=== PATIENT | male | born 1980 | race Caucasian/White ===

== ENCOUNTER 2018-12-14 11:39 | Inpatient (IN) | payer MEDICAID ==
[~2018-12-14] VITALS: Ht 177.8 cm; Wt 79.5 kg
[~2018-12-14 11:39] MED LIST: FLUO20CA39 PO; HYDR-3965 PO; IBUP-1984 PO; LANS30TA4 PO
[2018-12-14] MEDS ORDERED: acetaminophen 325mg tablet PO ONE (12:05)
--- NOTE | 2018-12-14 12:17 | NUR ---
relieving RN for break, instructional technology director at bedside
[2018-12-14] MEDS ORDERED: HYDROcodone/acetaminophen 10/325mg tab PO ONE (12:40)
[2018-12-14] MEDS ORDERED: ondansetron 4mg rapidly disintigrating tab PO ONE (12:40)
[2018-12-14] MEDS ORDERED: morphine 4 MG/ML inj SYRINge IV ONE (13:00)
[2018-12-14] MEDS ORDERED: normal saline 1000ML IV soln IVB ONE (13:00)
[2018-12-14] MEDS ORDERED: levoFLOXACIN-Levaquin 500mg/D5 100 ML IV ONE (13:00)
[2018-12-14] MEDS ORDERED: ondansetron/PF 4mg/2ml inj IV ONE (13:00)
[2018-12-14 13:40] LABS: BASOPHILS # (AUTO) 0.1 X10'3 (0-0.2); BASOPHILS % (AUTO) 0.6 % (0-1); EOSINOPHILS # (AUTO) 0.1 X10'3 (0-0.9); EOSINOPHILS % (AUTO) 0.5 % (0-6); HEMATOCRIT 40.6 % (42.0-52.0); HEMOGLOBIN 13.9 g/dl (14.0-17.9); LYMPHOCYTES # (AUTO) 2.1 X10'3 (1.1-4.8); LYMPHOCYTES % (AUTO) 10.3 % (21-51); MEAN CORPUSCULAR HEMOGLOBIN 33.8 PG (27.0-31.0); MEAN CORPUSCULAR HGB CONC 34.2 g/dL (33.0-36.5); MEAN CORPUSCULAR VOLUME 98.8 FL (78-98); MEAN PLATELET VOLUME 7.7 FL (7.4-10.4); MONOCYTES # (AUTO) 1.6 X10'3 (0-0.9); MONOCYTES % (AUTO) 8.1 % (2-12); NEUTROPHILS % (AUTO) 80.5 % (42-75); PLATELET COUNT 444 X10'3 (140-440); RED BLOOD COUNT 4.12 X10'6 (4.70-6.10); WHITE BLOOD COUNT 19.9 X10'3 (4.5-11.0)
[2018-12-14] MEDS ORDERED: NO HOME MEDS (13:51)
[2018-12-14 13:54] LABS: ALANINE AMINOTRANSFERASE 25 U/L (12-78); ALBUMIN 3.2 G/DL (3.4-5.0); ALBUMIN/GLOBULIN RATIO 0.7 (1.1-1.5); ALKALINE PHOSPHATASE 82 IU/L (46-116); ANION GAP 9 (8-16); ASPARTATE AMINO TRANSFERASE 16 U/L (10-37); BILIRUBIN,TOTAL 0.2 MG/DL (0.1-1.0); BLOOD UREA NITROGEN 13 MG/DL (7-18); BUN/CREATININE RATIO 12.5 (5.4-32.0); CALCIUM 9.3 MG/DL (8.5-10.1); CHLORIDE 96 MMOL/L (99-107); CREATININE 1.04 MG/DL (0.60-1.10); GLUCOSE 90 MG/DL (70-104); POTASSIUM 3.7 MMOL/L (3.5-5.1); SODIUM 132 MMOL/L (135-145); TOTAL CARBON DIOXIDE 27.2 MMOL/L (24-32); TOTAL PROTEIN 7.8 G/DL (6.4-8.2); eGFR 81 ML/MIN
[2018-12-14] MEDS ORDERED: normal saline 1000ml 1,000 ML IV SCH (14:06)
[2018-12-14] MEDS ORDERED: potassium Cl 40MEQ/NS 500ml 500 ML IV PRN ×2 (14:10)
[2018-12-14] MEDS ORDERED: acetaminophen 325mg tablet PO PRN ×2 (14:10)
[2018-12-14] MEDS ORDERED: magnesium 2GM in 50ml NS 50 ML IV PRN (14:10)
[2018-12-14] MEDS ORDERED: mag hydrox/Alum hydrox/simeth 30ml oral suspension PO PRN (14:10)
[2018-12-14] MEDS ORDERED: ondansetron/PF 4mg/2ml inj IV PRN ×2 (14:10→15:15)
[2018-12-14] MEDS ORDERED: magnesium hydroxide 30ml (MOM) UD suspension PO PRN (14:10)
[2018-12-14] MEDS ORDERED: magnesium 4gm in 100ml NS 100 ML IV PRN (14:10)
[2018-12-14] MEDS ORDERED: HYDROcodone/acetaminophen 10/325mg tab PO PRN (14:10)
[2018-12-14] MEDS ORDERED: morphine 4 MG/ML inj SYRINge IV PRN ×4 (14:10→15:15)
[2018-12-14] MEDS ORDERED: HYDROcodone/acetaminophen 5mg/325mg tablet PO PRN (14:10)
[2018-12-14] MEDS ORDERED: potassium Cl 20 mEq SR tablet PO PRN ×2 (14:10)
[2018-12-14] MEDS ORDERED: magnesium Cl slow-release 64mg tablet PO PRN (14:10)
[2018-12-14] MEDS ORDERED: LORazepam 0.5 MG tablet PO PRN (14:15)
[2018-12-14] MEDS ORDERED: LORazepam 2 mg/ml vial IV PRN (14:15)
[2018-12-14 14:56] LABS: PLATELET ESTIMATE NORMAL; TOTAL CELLS COUNTED 100; TOXIC VACUOLATION 1+
[2018-12-14] MEDS ORDERED: BUPIVAcaine/PF 2.5mg/ml (0.25%) 10ml vial ONE (14:56)
[2018-12-14 15:09] LABS: CLARITY,URINE CLEAR (Clear); COLOR,URINE YELLOW (Yellow); GLUCOSE, URINE NEGATIVE (Neg); KETONES,URINE NEGATIVE (Neg); LEUKOCYTE ESTERASE ,URINE NEGATIVE (Neg); NITRITES, URINE NEGATIVE (Neg); OCCULT BLOOD,URINE NEGATIVE (Neg); PH,URINE 5.5 (4.8-8.0); PROTEIN,URINE NEGATIVE (Neg); URINE AMPHETAMINE SCREEN POSITIVE (Neg); URINE BARBITUATE SCREEN NEGATIVE (Neg); URINE BENZODIAZEPINES SCREEN NEGATIVE (Neg); URINE CANNABINOID SCREEN POSITIVE (Neg); URINE COCAINE SCREEN NEGATIVE (Neg); URINE METHADONE SCREEN NEGATIVE (Neg); URINE OPIATE SCREEN POSITIVE (Neg); URINE PHENCYCLIDINE SCREEN NEGATIVE (Neg); UROBILINOGEN,URINE 0.2 E.U/dL (0.2-1.0)
[2018-12-14] MEDS ORDERED: ringers solution, lacted 1,000 ML IV SCH (15:14)
[2018-12-14 15:15] LABS: UA COLLECTION TYPE CLN CATCH MIDSTREAM
[2018-12-14] MEDS ORDERED: meperidine/PF 25mg/ml syringe IV PRN ×3 (15:15)
[2018-12-14] MEDS ORDERED: proCHLORperazine 10 MG/2 ml inj IV PRN (15:15)
[2018-12-14] MEDS ORDERED: fentaNYL /PF 50mcg/ml 5ml ampule ONE (15:18)
[2018-12-14] MEDS ORDERED: sevoflurane 250ml liquid IH ONE (15:18)
[2018-12-14] MEDS ORDERED: midazolam 2 mg/2 ml injection ONE (15:18)
[2018-12-14 16:20] VITALS: BP 102/67
--- NOTE | 2018-12-14 16:20 | NUR ---
Received from OR via bed, accompanied by Anesthesiologist. Report received. Initial physical assessment done and recorded.
[2018-12-14] MEDS ORDERED: sugammadex 200mg/2ml injection IV ONE (16:24)
[2018-12-14 16:30] VITALS: BP 108/66
[2018-12-14 16:40] VITALS: BP 110/68
[2018-12-14 16:50] VITALS: BP 107/66
[2018-12-14] MEDS ORDERED: LIDOcaine 2% (20mg/ml) 5ml vial ONE (16:53)
[2018-12-14] MEDS ORDERED: neostigmine methylsulfate 1 MG/ML 10ml vial ONE (16:53)
[2018-12-14] MEDS ORDERED: glycopyrrolate 0.2mg/ml inj ONE (16:53)
[2018-12-14] MEDS ORDERED: dexamethasone sod phosphate 4mg/ml inj. ONE (16:53)
[2018-12-14] MEDS ORDERED: propofol inj 20 ML IV ONE (16:53)
[2018-12-14] MEDS ORDERED: ondansetron/PF 4mg/2ml inj ONE (16:53)
[2018-12-14] MEDS ORDERED: rocuronium 10mg/ml inj IV ONE (16:53)
[2018-12-14 17:00] VITALS: BP 120/66
[2018-12-14 17:10] VITALS: BP 118/65
--- NOTE | 2018-12-14 17:15 | NUR ---
Discharged home in good condition. No complaints of pain during post op period, no pain meds given no complaints Discharge criteria met, discharge instructions given, demonstrates verbal understanding.
[2018-12-14] MEDS ORDERED: heparin, porcine 5000 units/ml vial SQ SCH (20:00)
[2018-12-14] MEDS ORDERED: temazepam 15mg capsule PO PRN (21:00)
[2018-12-15] MEDS ORDERED: CefTRIAXone 2gm/D5W 50ml 50 ML IV SCH (08:00)
[2018-12-15] MEDS ORDERED: K and/or MAG REPLACEMENT MC SCH (08:00)
[2018-12-15] MEDS ORDERED: nicotine 14mg patch - 24hr TD SCH (08:00)
== END 2018-12-14 17:15 | disposition home or self-care (01) | DRG 483 ==
LOC: ER 11:39 → ED HOLD 14:06 → PACU 17:59 → ED HOLD 17:59 → PACU 18:12 → ED HOLD 18:12
PROVIDERS: ADMIT Internal Medicine; ATTEND Internal Medicine
PROC: 0VJ80ZZ Inspection of Scrotum and Tunica Vaginalis, Open Approach (ICD-10-PCS; 2018-12-14)
PROC: 0VSB0ZZ Reposition Left Testis, Open Approach (ICD-10-PCS; principal; 2018-12-14 15:18)
DX: N50.812 Left testicular pain (principal); F10.20 Alcohol dependence, uncomplicated; F12.90 Cannabis use, unspecified, uncomplicated; F17.210 Nicotine dependence, cigarettes, uncomplicated; N43.3 Hydrocele, unspecified; F41.9 Anxiety disorder, unspecified; F32.9 Major depressive disorder, single episode, unspecified; N50.89 Other specified disorders of the male genital organs; Z72.89 Other problems related to lifestyle; Z79.899 Other long term (current) drug therapy
CPT/HCPCS: 36415; 76870; 80053; 80305; 80320; 81003; 85025; 86885; 86900; 86901; 87491; 96365; 96375; 99285; A7000; C9399; G0378; J0696; J1100; J1644; J1956; J2001; J2250; J2270; J2405; J2704; J2710; J3010; J3490; J7120